=== PATIENT | male | born 1970 | race Caucasian/White ===

== ENCOUNTER → 2018-11-14 16:15 | Outpatient (CLI) | payer OTHER, SELFPAY ==
[2018-11-14 18:04] LABS: Vitamin D,25 Hydroxy 14.7 ng/mL (29.95-100.01)
[2018-11-14 18:22] LABS: Anion Gap 7 (5-15); BUN 17 mg/dL (7-18); BUN/Creat Ratio 16.5 RATIO (10-20); Calcium,Total 8.7 mg/dL (8.5-10.1); Chloride 109 mmol/L (98-107); Cholesterol 157 mg/dL (200); Creatinine, Serum 1.03 mg/dL (0.70-1.30); EST Glomerular Filtration Rate 82 mL/min (>60); Est Glom Filt Rate - Afr Amer 99 mL/min (>60); Glucose 67 mg/dL (74-106); High Density Lipoprotein 28 mg/dL; Sodium Level 141 mmol/L (136-145); Thyroid Stim Hormone (TSH) 2.42 uIU/mL (0.358-3.74); Triglycerides 392 mg/dL; Very Low Density Lipoprotein 78 mg/dL (5-40)
== END ==
PROVIDERS: Family Provider Family Medicine; PCP Family Medicine; Referring Provider Family Medicine; Visit Provider Family Medicine
DX: I10 Essential (primary) hypertension (principal); G25.81 Restless legs syndrome; E66.01 Morbid (severe) obesity due to excess calories
CPT/HCPCS: 36415; 80048; 80061; 82306; 84443

== ENCOUNTER → 2020-11-04 10:07 | Outpatient (CLI) | payer OTHER, SELFPAY ==
[2020-11-04 13:05] LABS: Anion Gap 8 (5-15); BUN 12 mg/dL (7-18); Calcium,Total 9.3 mg/dL (8.5-10.1); Chloride 109 mmol/L (98-107); Cholesterol 159 mg/dL (200); Creatinine, Serum 1.09 mg/dL (0.70-1.30); EST Glomerular Filtration Rate 76 mL/min (>60); Est Glom Filt Rate - Afr Amer 92 mL/min (>60); Glucose 82 mg/dL (74-106); High Density Lipoprotein 32 mg/dL; Potassium 4.1 mmol/L (3.5-5.1); Sodium Level 139 mmol/L (136-145); Triglycerides 222 mg/dL; Very Low Density Lipoprotein 44 mg/dL (5-40)
[2020-11-04 13:12] LABS: Microalbumin,Random Urine 40.7 mg/L (NO RANGE EST.); Microalbumin:Creatinine Ratio 42.1 mg/g CRE (<30 mg/g CRE)
== END ==
PROVIDERS: PCP Family Medicine; Referring Provider Family Medicine; Visit Provider Family Medicine
DX: I10 Essential (primary) hypertension (principal)
CPT/HCPCS: 36415; 80048; 80061; 82043; 82570

== ENCOUNTER 2021-08-18 18:17 | Outpatient (CLI) | payer OTHER, SELFPAY ==
[2021-08-18 18:22] VITALS: BP 144/91; PULSE 94; RESP 28; TEMP 37.3; O2SAT 94; BMI 35.2
[2021-08-18] MEDS: 0.9% Saline Lock 10 ML Syringe IV (18:22)
[2021-08-18 19:04] VITALS: BP 137/76; PULSE 76; RESP 28; TEMP 38.4; O2SAT 96
[2021-08-18] MEDS: Acetaminophen 325 MG Tablet 650 MG PO (19:14)
[2021-08-18 19:55] VITALS: BP 125/73; PULSE 90; RESP 24; TEMP 37.9; O2SAT 94
== END 2021-08-18 20:06 | disposition home or self-care (01) ==
LOC: MS3OUT 18:17 → MS3 18:19
PROVIDERS: PCP Family Medicine; Visit Provider Nurse Practitioner Acute Care
DX: U07.1 COVID-19 (principal)
CPT/HCPCS: J7050; M0245; Q0245; A4216

== ENCOUNTER → 2022-01-26 | Outpatient (CLI) | payer BC, SELFPAY ==
[2022-01-26 18:59] LABS: Anion Gap 6 (5-15); BUN 15 mg/dL (7-18); BUN/Creat Ratio 13.6 RATIO (10-20); Calcium,Total 9.3 mg/dL (8.5-10.1); Chloride 107 mmol/L (98-107); Cholesterol 178 mg/dL (200); EST Glomerular Filtration Rate 75 mL/min (>60); Est Glom Filt Rate - Afr Amer 90 mL/min (>60); Glucose 78 mg/dL (74-106); High Density Lipoprotein 33 mg/dL; Potassium 3.8 mmol/L (3.5-5.1); Sodium Level 139 mmol/L (136-145); Triglycerides 226 mg/dL; Very Low Density Lipoprotein 45 mg/dL (5-40)
== END | disposition home or self-care (01) ==
LOC: MFPLAB 16:59
PROVIDERS: PCP Family Medicine; Referring Provider Family Medicine; Visit Provider Family Medicine
DX: I10 Essential (primary) hypertension (principal)
CPT/HCPCS: 36415; 80048; 80061

== ENCOUNTER → 2023-01-25 | Outpatient (CLI) | payer BC, SELFPAY | END | disposition home or self-care (01) | LOC: LAB.FUTURE 16:00 | PROVIDERS: PCP Family Medicine; Visit Provider Family Medicine | DX: I10 Essential (primary) hypertension (principal) ==